=== PATIENT | male | born 1970 | race African-American/Black ===

== ENCOUNTER 2024-02-27 20:31 | Inpatient (IN) | payer OTHER ==
[2024-02-27 22:42] VITALS: BMI 21.1
[2024-02-28] MEDS ORDERED: BISMUTH SUBSALICYLATE 524 MG/30 ML PO PRN (02:21)
[2024-02-28] MEDS ORDERED: BENZONATATE 200 MG CAPSULE PO PRN (02:21)
[2024-02-28] MEDS ORDERED: BENZOCAINE/MENTHOL (CHLORASEPTIC ) LOZENGE MM PRN (02:21)
[2024-02-28] MEDS ORDERED: guaiFENesin 600 MG TABLET.ER (FP) PO PRN (02:21)
[2024-02-28] MEDS ORDERED: DICYCLOMINE HCL 10 MG CAPSULE PO PRN (02:21)
[2024-02-28] MEDS ORDERED: NALOXONE HCL 0.4 MG/ML VIAL IM PRN (02:21)
[2024-02-28] MEDS ORDERED: MAGNESIUM HYDROX 2400MG/30ML ORAL SUSPENSION 30 ML CUP PO PRN (02:21)
[2024-02-28] MEDS ORDERED: POLYETHYLENE GLYCOL (HEALTHYLAX) 3350 17 GM PACKET PO PRN (02:21)
[2024-02-28] MEDS ORDERED: NALOXONE (NARCAN) HCL 4 MG/0.1 ML SPRAY NS PRN (02:21)
[2024-02-28] MEDS ORDERED: ONDANSETRON *ODT* 4 MG TABLET SL PRN (02:21)
[2024-02-28] MEDS ORDERED: LOPERAMIDE HCL 2 MG CAPSULE PO PRN (02:21)
[2024-02-28] MEDS ORDERED: chlordiazePOXIDE HCL 25 MG CAPSULE ONE (02:37)
[2024-02-28] MEDS ORDERED: METHOCARBAMOL 500 MG TABLET ONE (02:37)
[2024-02-28] MEDS: METHOCARBAMOL 500 MG TABLET PO PRN (02:44)
[2024-02-28] MEDS: chlordiazePOXIDE HCL 25 MG CAPSULE PO PRN (02:45)
[2024-02-28] MEDS: IBUPROFEN 400 MG TABLET (FP) PO PRN (03:28)
[2024-02-28] MEDS: chlordiazePOXIDE HCL 25 MG CAPSULE PO SCH (05:18)
[2024-02-28] MEDS: ASPIRIN COATED 81 MG TABLET.EC PO SCH (10:13)
[2024-02-28] MEDS: PRENATAL VITAMINS W/ FOLIC ACID TABLET (FP) PO SCH (10:13)
[2024-02-28] MEDS: ACETAMINOPHEN 325 MG TABLET (FP) PO PRN (12:31)
[2024-02-28] MEDS: THIAMINE 100 MG TABLET PO SCH (22:23)
[2024-02-28] MEDS: MELATONIN 5 MG TABLETS PO SCH (22:23)
[2024-02-29] MEDS: chlordiazePOXIDE HCL 25 MG CAPSULE PO SCH (05:40)
[2024-02-29] MEDS: MAG HYDROX/AL HYDROX/SIMETH 30 ML UNIT-DOSE CUP PO PRN (10:11)
[2024-02-29 11:32] LABS: POTASSIUM 3.1 mmol/L (3.5-5.1)
[2024-02-29 11:36] LABS: CALCIUM 10.4 mg/dL (8.5-10.1)
[2024-02-29 11:37] LABS: ALBUMIN 4.5 g/dl (3.4-5.0)
[2024-02-29 11:41] LABS: BILIRUBIN,TOTAL 1.2 mg/dL (0.2-1); TOT PROT 8.5 g/dl (6.4-8.2)
[2024-02-29 11:55] LABS: HEMOGLOBIN 13.7 GM/dL (11.7-16.9); MCH 31.1 pg (25.7-33.7); MCHC 34.2 g/dl (32.0-35.9); MEAN CELL VOLUME 90.8 fl (80-96); MEAN PLT VOLUME 10.3 fl (7.5-11.1); PLATELET COUNT 90 10^3/uL (134-434); RDW 14.6 % (11.9-15.9); WHITE BLOOD COUNT 4.3 K/mm3 (4.0-10.0)
[2024-02-29] MEDS: IBUPROFEN 600 MG TABLET (FP) PO PRN (14:46)
[2024-02-29] MEDS: POTASSIUM CHLORIDE ORAL LIQUID 20 MEQ/15 ML PO ONE ×3 (17:05→17:30)
[2024-03-01] MEDS ORDERED: chlordiazePOXIDE HCL 10 MG CAPSULE PO PRN
[2024-03-01] MEDS: chlordiazePOXIDE HCL 10 MG CAPSULE PO SCH (05:44)
[2024-03-01 11:19] LABS: POTASSIUM 3.6 mmol/L (3.5-5.1)
[2024-03-01 11:22] LABS: BLOOD UREA NITROGEN 12.6 mg/dL (7-18)
[2024-03-01 11:26] LABS: CREATININE 0.9 mg/dL (0.55-1.3)
[2024-03-01] MEDS: hydrOXYzine PAMOATE 25 MG CAPSULE (FP) PO PRN (22:05)
[2024-03-02] MEDS: chlordiazePOXIDE HCL 10 MG CAPSULE PO SCH (05:52)
[2024-03-02 09:12] VITALS: RESP 18
[2024-03-03] MEDS: chlordiazePOXIDE HCL 10 MG CAPSULE PO ONE (05:31)
[2024-03-03 09:40] VITALS: BP 130/93; PULSE 63; TEMP 97.9
== END 2024-03-03 10:56 | disposition home or self-care (01) | DRG 775 ==
LOC: YASAS 20:31 → Y3N 02-28 02:44
PROVIDERS: ADMIT Allergy & Immunology; ATTEND Surgery
PROC: HZ2ZZZZ Detoxification Services for Substance Abuse Treatment (ICD-10-PCS; principal; 2024-02-28)
DX: F10.230 Alcohol dependence with withdrawal, uncomplicated (principal); F13.20 Sedative, hypnotic or anxiolytic dependence, uncomplicated; F12.20 Cannabis dependence, uncomplicated; E87.6 Hypokalemia; I51.9 Heart disease, unspecified; Z87.891 Personal history of nicotine dependence; Z86.11 Personal history of tuberculosis; Z59.01 Sheltered homelessness; Z56.0 Unemployment, unspecified
CPT/HCPCS: 36415; 71045-TC-FY; 80048; 80053; 80305; 80307; 85027; 86780; 93005; 93010